=== PATIENT | female | born 1960 | race Caucasian/White ===

== ENCOUNTER 2016-08-15 15:07 | Emergency (ER) | payer OTHER ==
[~2016-08-15] VITALS: Ht 172.7 cm; Wt 106.5 kg
[~2016-08-15 15:07] MED LIST: ATEN-173 PO; ATV1 PO; TRIA3AER NAE
[2016-08-15 15:09] VITALS: TEMP 36.5; Ht 172.7 cm; Wt 106.5 kg
[2016-08-15] MEDS ORDERED: MoRPHine SULFATE 10 MG/ML CARP/VIAL IV STA (16:01)
[2016-08-15] MEDS ORDERED: ONDANSETRON INJ 2 MG/ML 2 ML VIAL IV STA (16:01)
[2016-08-15] MEDS ORDERED: SODIUM CHLORIDE 0.9% 1000ML 1,000 ML IV STA (16:01)
--- NOTE | 2016-08-15 16:09 | EMERGENCY ROOM VISIT NOTE ---
History First contact with patient: 15:49 Chief Complaint: ABDOMINAL PAIN Stated Complaint: SEVERE PAIN ON RIGHT SIDE History of Present Illness The patient is a 56 year old female who presents to the Emergency Room with complaints of right-sided abdominal pain which began approximately 4 hours ago. The patient reports that she had taken a few bites of her lunch of cheese when the pain began. She states the pain is severe and located in the right upper abdomen. She rates the discomfort an 8/10. She has not taken any medication for pain. She has had associated nausea and diarrhea. She denies any vomiting. She does report that she has had one episode of similar pain several months ago and had an ultrasound a few days later which showed gallstones. She denies any history of abdominal surgery. She denies any chest pain or shortness of breath. She denies any fevers/chills, urinary symptoms, vaginal discharge or vaginal bleeding. Review of Systems A complete 10-point Review of Systems was discussed with the patient, with pertinent positives and negatives listed in the History of Present Illness. All remaining Review of Systems questions can be considered negative unless otherwise specified. Social History Smoking Status: Never Smoker Current/Historical Medications Scheduled Ondasetron Odt (Zofran Odt), 4 MG SL Q6H Triamcinolone Acet (Nasacort-Aq Nasal Inh), 1 SPRAY LAVON DAILY Scheduled PRN Oxycodone/Acetaminophen 5MG/325MG (Percocet 5MG/325MG), 1-2 TABS PO Q6H PRN for Pain Allergies Coded Allergies: Aspirin (Unverified Allergy, Unknown, HIVES, 08/15/16) Gluten (Unverified Allergy, Unknown, GI ISSUES, 08/15/16) Physical Exam Vital Signs Date Time Temp Pulse Resp B/P Pulse Ox O2 Delivery O2 Flow Rate FiO2 08/15/16 18:52 79 18 161/95 95 Room Air 08/15/16 17:00 97 18 161/109 93 Room Air 08/15/16 15:09 36.5 81 18 159/109 98 Room Air Physical Exam VITALS: Vitals are noted on the nurse's note and reviewed by myself. Vital signs stable. GENERAL: This is a 56-year-old female, in no acute distress, nondiaphoretic, well-developed well-nourished. SKIN: Capillary reflex less than 2 seconds. HEART: Regular rate and rhythm without murmurs gallops or rubs. LUNGS: Clear to auscultation bilaterally without wheezes, rales or rhonchi. No retractions or accessory muscle use. ABDOMEN: Positive bowel sounds x 4. Moderate tenderness in the right upper quadrant. Negative Horner sign. No guarding or rebound tenderness. NEURO: Patient was alert and oriented to person place and time. Medical Decision & Procedures ER Provider Diagnostic Interpretation: CHEST ONE VIEW PORTABLE IMPRESSION: 1. Bibasilar atelectasis 2. No free air identified BILIARY ULTRASOUND FINDINGS: The pancreas appears normal as visualized. The liver appears sonographically normal. Multiple gallbladder calculi are visualized. There is borderline gallbladder wall thickening. There is no pericholecystic fluid. The technologist reports a negative sonographic Horner sign. The common bile duct is the upper limits of normal in size measuring 6 mm. There is moderate right-sided hydronephrosis. Given the right-sided pain, clinical correlation in regards to an obstructing ureteral calculus should be considered IMPRESSION: 1. Cholelithiasis and borderline gallbladder wall thickening 2. Negative sonographic Horner sign 3. 6 mm common bile duct 4. Unexplained right-sided hydronephrosis. Laboratory Results 08/15/16 16:40 Red Blood Count 4.95, Mean Corpuscular Volume 85.1, Mean Corpuscular Hemoglobin 29.3, Mean Corpuscular Hemoglobin Concent 34.4, Mean Platelet Volume 10.1, Neutrophils (%) (Auto) 81.8, Lymphocytes (%) (Auto) 11.7, Monocytes (%) (Auto) 4.8, Eosinophils (%) (Auto) 1.3, Basophils (%) (Auto) 0.3, Neutrophils # (Auto) 5.75, Lymphocytes # (Auto) 0.82, Monocytes # (Auto) 0.34, Eosinophils # (Auto) 0.09, Basophils # (Auto) 0.02 08/15/16 16:40 Test 08/15/16 16:30 08/15/16 16:40 Urine Color YELLOW Urine Appearance SL CLOUDY (CLEAR) Urine pH 8.5 (4.5-7.5) Urine Specific [place] 1.015 (1.000-1.030) Urine Protein NEG (NEG) Urine Glucose (UA) NEG (NEG) Urine Ketones NEG (NEG) Urine Occult Blood NEG (NEG) Urine Nitrite NEG (NEG) Urine Bilirubin NEG (NEG) Urine Urobilinogen NEG (NEG) Urine Leukocyte Esterase NEG (NEG) Urine RBC 0-4 /hpf (0-4) Urine WBC 1-5 /hpf (0-5) Urine Epithelial Cells >30 /lpf (0-5) Urine Bacteria NEG (NEG) Urine Test NEG (NEG) White Blood Count 7.03 K/uL (4.8-10.8) Red Blood Count 4.95 M/uL (4.2-5.4) Hemoglobin 14.5 g/dL (12.0-16.0) Hematocrit 42.1 % (37-47) Mean Corpuscular Volume 85.1 fL (80-100) Mean Corpuscular Hemoglobin 29.3 pg (25-34) Mean Corpuscular Hemoglobin Concent 34.4 g/dl (32-36) Platelet Count 204 K/uL (130-400) Mean Platelet Volume 10.1 fL (7.4-10.4) Neutrophils (%) (Auto) 81.8 % Lymphocytes (%) (Auto) 11.7 % Monocytes (%) (Auto) 4.8 % Eosinophils (%) (Auto) 1.3 % Basophils (%) (Auto) 0.3 % Neutrophils # (Auto) 5.75 K/uL (1.4-6.5) Lymphocytes # (Auto) 0.82 K/uL (1.2-3.4) Monocytes # (Auto) 0.34 K/uL (0.11-0.59) Eosinophils # (Auto) 0.09 K/uL (0-0.5) Basophils # (Auto) 0.02 K/uL (0-0.2) RDW Standard Deviation 39.7 fL (36.4-46.3) RDW Coefficient of Variation 13.0 % (11.5-14.5) Immature Granulocyte % (Auto) 0.1 % Immature Granulocyte # (Auto) 0.01 K/uL (0.00-0.02) Anion Gap 11.0 mmol/L (3-11) Est Creatinine Clear Calc Drug Dose 92.3 ml/min Estimated GFR () 85.7 Estimated GFR (Non- 74.0 BUN/Creatinine Ratio 16.5 (10-20) Calcium Level 9.0 mg/dl (8.5-10.1) Total Bilirubin 0.9 mg/dl (0.2-1) Aspartate Amino Transf (AST/SGOT) 155 U/L (15-37) Alanine Aminotransferase (ALT/SGPT) 141 U/L (12-78) Alkaline Phosphatase 97 U/L (45-117) Troponin I < 0.015 ng/ml (0-0.045) Total Protein 7.2 gm/dl (6.4-8.2) Albumin 3.6 gm/dl (3.4-5.0) Globulin 3.6 gm/dl (2.5-4.0) Albumin/Globulin Ratio 1.0 (0.9-2) Lipase 184 U/L (73-393) Medications Administered Medications (Trade) Dose Ordered Sig/Rufina Route Start Time Stop Time Status Last Admin Dose Admin Sodium Chloride (Nss 1000ml) 1,000 ml @ 999 mls/hr Q1H1M STAT IV 08/15/16 16:01 08/15/16 17:01 DC 08/15/16 16:01 999 MLS/HR Ondansetron HCl (Zofran Inj) 4 mg NOW STAT IV 08/15/16 16:01 08/15/16 16:04 DC 08/15/16 16:01 4 MG Morphine Sulfate (MoRPHine SULFATE INJ) 6 mg NOW STAT IV 08/15/16 16:01 08/15/16 16:04 DC 08/15/16 16:01 6 MG ECG Indication: abdominal pain Rate (beats per minute): 78 Rhythm: normal sinus Findings: no acute ischemic change, no ectopy Medical Decision Differential diagnosis includes biliary colic, renal calculus, pyelonephritis, gastroenteritis, colitis, retrocecal appendicitis, among others. The patient was evaluated as above. Labs were drawn and IV access was obtained. Imaging studies were performed and read by radiology as above. The patient was medicated with 1 L normal saline solution, 4 mg Zofran IV and 6 mg morphine IV. The patient was reassessed multiple times during their stay in the emergency department and remained in stable condition. The patient is a 56-year-old female who presents today complaining of right upper quadrant pain and nausea. Labs revealed no leukocytosis or anemia. AST and ALT were mildly elevated. Total bilirubin was within normal limits. Kidney functions are within normal limits. No concerning electrolyte abnormalities. Urinalysis was not suggestive of infection. Urine was negative. EKG was interpreted by myself and showed a normal sinus rhythm. Right upper quadrant ultrasound was performed and did show some gallbladder wall thickening as well as borderline dilatation of the common bile duct. There was no evidence of acute cholecystitis. However, given the patient's symptoms do feel this is likely secondary to biliary colic. I spoke with the general surgeon on-call, Dr. Ramos, who felt that the patient was stable for discharge home and follow-up in the office within the next few days. I discussed this with the patient, who was feeling complete resolution of her symptoms with the IV pain medication and nausea medication. She was given prescriptions for pain medication as well as Zofran and instructed to eat a low- fat diet at home. She was certainly invited to return to the emergency department if she has return of her pain or worsening pain. Otherwise, she will follow up with general surgery this week. Based on the patient's presentation, lab results, and imaging studies, I feel the patient is stable for outpatient treatment. The patient's case was reviewed with Dr. Silveira, ED attending physician, who agreed with my assessment and treatment plan. Discharge instructions were reviewed with the patient. The patient verbalized understanding of my assessment and treatment plan and was discharged home in good condition. Impression Primary Impression: Biliary colic Departure Information Dispostion Home / Self-Care Condition GOOD Prescriptions Oxycodone/Acetaminophen 5MG/325MG (PERCOCET 5MG/325MG) Tab 1-2 TABS PO Q6H Y for Pain, #20 TAB For Initial Treatment Prov: Kathy Rizo PA-C 08/15/16 Ondasetron Odt (ZOFRAN ODT) 4 Mg Tab 4 MG SL Q6H for Nausea, #15 TAB Prov: Kathy Rizo PA-C 08/15/16 Referrals Juan Butt M.D. (PCP) Jeison Ramos D.O. Patient Instructions [facility] Additional Instructions You have been treated in the Emergency Department for your Abdominal Pain. Laboratory results and imaging studies have ruled out any emergent causes for your abdominal pain which would warrant admission or surgery. You have been prescribed Percocet to be used for pain control. This is a narcotic medication. You cannot drive or consume alcohol while on this medicine. This medicine should only be used for pain that cannot be controlled with [id number] pain medicines. You have been prescribed and Zofran to be used for any nausea or vomiting. Take as prescribed. You should keep a diet low in fat for the next several days, as high fat foods may cause inflammation of the gall bladder. You should follow-up with Dr. Ramos within 3-4 days. Call his office tomorrow morning and let them know that here in the emergency department and Dr. Ramos would like you to be seen this week. As with any trip to the Emergency Department, you should follow-up with your Primary Care Provider from today's visit. Return to the emergency department if your symptoms persist despite treatment plan outlined above or if the following symptoms occur: Uncontrollable vomiting , blood in your vomiting, blood in your stools, fevers or any other new/ concerning symptoms.
[2016-08-15 16:46] LABS: URINE APPEARANCE SL CLOUDY (CLEAR); URINE BILIRUBIN NEG (NEG); URINE COLOR YELLOW; URINE NITRITE NEG (NEG); URINE PH 8.5 (4.5-7.5); URINE SPECIFIC GRAVITY 1.015 (1.000-1.030); UROBILINOGEN NEG (NEG)
[2016-08-15 16:48] LABS: MANUAL MICROSCOPIC REQUIRED? YES; REVIEW REQ? NO
[2016-08-15 16:53] LABS: BASO % 0.3 %; BASO ABS # 0.02 K/uL (0-0.2); COMPLETE YES; EOS % 1.3 %; HEMATOCRIT 42.1 % (37-47); IG% 0.1 %; LYMPH % 11.7 %; LYMPH ABS # 0.82 K/uL (1.2-3.4); MEAN CELL VOLUME 85.1 fL (80-100); MEAN CORPUSCULAR HEMOGLOBIN 29.3 pg (25-34); MEAN CORPUSCULAR HGB CONC 34.4 g/dl (32-36); MEAN PLATELET VOLUME 10.1 fL (7.4-10.4); MONO % 4.8 %; NEUT % 81.8 %; PLATELET COUNT 204 K/uL (130-400); RED BLOOD COUNT 4.95 M/uL (4.2-5.4); WHITE BLOOD COUNT 7.03 K/uL (4.8-10.8)
--- NOTE | 2016-08-15 16:53 | DIAGNOSTIC IMAGING REPORT ---
CHEST ONE VIEW PORTABLE CLINICAL HISTORY: Right upper quadrant abdominal pain COMPARISON STUDY: No previous studies for comparison. FINDINGS: The heart is normal in size. There is no failure. There is no lobar consolidation. There are linear bibasilar opacities, likely atelectatic. No free air is visualized.[ IMPRESSION: 1. Bibasilar atelectasis 2. No free air identified Electronically signed by: Pilo Marmolejo M.D. 08/15/2016 4:52 PM Dictated Date/Time: 08/15/2016 4:51 PM
[2016-08-15 16:57] LABS: URINE BACTERIA NEG (NEG); URINE RBC 0-4 /hpf (0-4)
[2016-08-15 16:58] LABS: ZZUR CULT IF INDIC CLEAN CATCH NO
[2016-08-15 17:14] LABS: ALT/SGPT 141 U/L (12-78); AST/SGOT 155 U/L (15-37); BLOOD UREA NITROGEN 15 mg/dl (7-18); BUN/CREATININE RATIO 16.5 (10-20); CARBON DIOXIDE 22 mmol/L (21-32); CHLORIDE 108 mmol/L (98-107); CREATININE 0.88 mg/dl (0.60-1.20); GLUCOSE 113 mg/dl (70-99); POTASSIUM 3.6 mmol/L (3.5-5.1); SODIUM 141 mmol/L (136-145)
[2016-08-15 17:19] LABS: ALKALINE PHOSPHATASE 97 U/L (45-117)
--- NOTE | 2016-08-15 18:01 | DIAGNOSTIC IMAGING REPORT ---
BILIARY ULTRASOUND CLINICAL HISTORY: Right upper quadrant abdominal pain and nausea COMPARISON STUDY: No previous studies for comparison. FINDINGS: The pancreas appears normal as visualized. The liver appears sonographically normal. Multiple gallbladder calculi are visualized. There is borderline gallbladder wall thickening. There is no pericholecystic fluid. The technologist reports a negative sonographic Horner sign. The common bile duct is the upper limits of normal in size measuring 6 mm. There is moderate right-sided hydronephrosis. Given the right-sided pain, clinical correlation in regards to an obstructing ureteral calculus should be considered IMPRESSION: 1. Cholelithiasis and borderline gallbladder wall thickening 2. Negative sonographic Horner sign 3. 6 mm common bile duct 4. Unexplained right-sided hydronephrosis. Electronically signed by: Pilo Marmolejo M.D. 08/15/2016 6:00 PM Dictated Date/Time: 08/15/2016 5:58 PM
[2016-08-15] MEDS ORDERED: OXYC-57 PO (18:33)
[2016-08-15] MEDS ORDERED: ONDA4TAB10 SL (18:33)
[2016-08-15 18:52] VITALS: BP 161/95; PULSE 79; O2SAT 95
[2016-08-23] MEDS ORDERED: HYDR-5688 PO (12:37)
== END 2016-08-15 18:56 | disposition home or self-care (01) ==
LOC: C.EDB 15:08
DX: K80.50 Calculus of bile duct without cholangitis or cholecystitis without obstruction (principal); Z88.6 Allergy status to analgesic agent

== ENCOUNTER → 2016-08-23 | Day surgery (SDC) | payer OTHER ==
[~2016-08-23] VITALS: Ht 172.7 cm; Wt 90.9 kg
[~2016-08-23] MED LIST changes: -ATEN-173 PO; +ATROPINE SULFATE 0.1 MG/ML 5ML SYR IV PRN; -ATV1 PO; +BUPIVACAINE/EPINEPHRINE 0.5% MPF 1:200,000 30 ML VIAL ONE; +CEFAZOLIN 2000 MG/60 ML D5W 60 ML IV SCH; +DEXAMETHASONE SOD INJ 4 MG/ML VIAL ONE; +FENTANYL CITRATE INJ 50 MCG/1 ML 2 ML VIAL ONE; +GLYCOPYRROLATE INJ 0.2 MG/ML VIAL ONE; +HEPARIN SOD 5000 UNIT/0.5 ML CARP SQ SCH; +HYDR-5688 PO; +HYDROCODONE/ACETAMOPHEN 5/325MG TAB PO PRN; +HYDROmorphone INJ 0.5 MG/0.5 ML SYR IV PRN; +HYDROmorphone INJ 1 MG/ML SYR ONE; +KETOROLAC TROMETHAMINE 30 MG/ML VIAL IV. PRN; +KETOROLAC TROMETHAMINE 30 MG/ML VIAL ONE; +LACTATED RINGER'S 1000ML 1,000 ML IV SCH; +LACTATED RINGER'S 1000ML IV SCH; +LIDOCAINE HCL 2% 2 ML VIAL (20MG/ML) ONE; +MIDAZOLAM HCL 1 MG/ML 2ML VIAL ONE; +MoRPHine SULFATE 4 MG/ML 1 ML CARP\\VIAL IV PRN; +NEOSTIGMINE METHYLSULFATE 5 MG/5 ML SYR ONE; +ONDANSETRON INJ 2 MG/ML 2 ML VIAL IV PRN; +ONDANSETRON INJ 2 MG/ML 2 ML VIAL ONE; +PROPOFOL IV EMULSION 10 MG/ML 20 ML VIAL IV ONE; +ROCURONIUM BROMIDE 10 MG/ML 5 ML VIAL ONE
[2016-08-23 11:41] VITALS: BP 133/77; PULSE 75; TEMP 36.9; O2SAT 97; Ht 172.7 cm; Wt 90.9 kg
--- NOTE | 2016-08-23 12:37 | History & Physical Bridge Note ---
H&P Re-Evaluation Bridge Note: I have examined the patient, reviewed the History & Physical and in the interval since the performance of the History & Physical I have noted the following changes of clinical significance: No changes noted
--- NOTE | 2016-08-23 12:39 | Discharge Instructions ---
Discharge Instructions Admission Reason for Admission: Symptomatic Cholelithiasis Discharge Discharge Diagnosis / Problem: symptomatic cholelithiasis Discharge Goals Goal(s): Decrease discomfort Activity Recommendations Activity Limitations: as noted below Lifting Limitations: no more than 10 pounds Exercise/Sports Limitations: until after follow-up appointment May Resume Sexual Activity: after follow-up appointment Shower/Bathe: tomorrow . Instructions / Follow-Up Instructions / Follow-Up follow up with Dr. Ramos in 1-2 weeks. Current Hospital Diet Patient's current hospital diet: Discharge Diet Recommended Diet: Regular Diet Procedures Procedures Performed: lap homer Pending Studies Studies pending at discharge: yes List of pending studies: pathology report Medical Emergencies . Who to Call and When: Medical Emergencies: If at any time you feel your situation is an emergency, please call 911 immediately. . Non-Emergent Contact Non-Emergency issues call your: Primary Care Provider, Surgeon Call Non-Emergent contact if: temperature is above 101, wound has increased drainage, wound has increased redness, wound has increased pain . "Provider Documentation" section prepared by Jeison Ramos. VTE Core Measure Inpt VTE Proph given/why not?: Unfractionated heparin SQ, SCD's
--- NOTE | 2016-08-23 14:56 | [facility] Operative Report ---
Operative Report Operative Date Aug 23, 2016. Pre-Operative Diagnosis symptomatic cholelithiasis Post-Operative Diagnosis symptomatic cholelithiasis Procedure(s) Performed lap homer Food Beverage Attendant Surgeon(s) Abhay Culver PA-c Findings normal anatomy other than gallstones Anesthesia GET Complication(s) None Disposition Recovery Room / PACU I attest to the content of the Intraoperative Record and any orders documented therein. Any exceptions are noted below.
--- NOTE | 2016-08-23 15:19 | Anesthesiology Progress Note ---
Anesthesia Post Op Note Date & Time Aug 23, 2016 at 15:19 Vital Signs Vital Signs Past 12 Hours Date Time Temp Pulse Resp B/P Pulse Ox O2 Delivery O2 Flow Rate FiO2 08/23/16 15:10 57 13 129/79 92 Nasal Cannula 2 08/23/16 15:00 55 13 143/93 93 Room Air 08/23/16 14:50 63 15 153/79 100 Mask 10 08/23/16 14:40 64 15 146/96 100 Mask 10 08/23/16 14:30 36.2 86 16 133/89 100 Mask 10 08/23/16 11:41 36.9 75 18 133/77 97 Room Air Notes Mental Status: alert / awake / arousable, participated in evaluation Pt Amnestic to Procedure: Yes Nausea / Vomiting: adequately controlled Pain: adequately controlled Airway Patency, RR, SpO2: stable & adequate BP & HR: stable & adequate Hydration State: stable & adequate Anesthetic Complications: no major complications apparent
[2016-08-23 15:35] VITALS: BP 133/66; PULSE 59; TEMP 36.6; O2SAT 93
[2016-08-23 16:05] VITALS: BP 124/74; PULSE 62; O2SAT 93
--- NOTE | 2016-08-23 16:15 | OPERATIVE REPORT ---
DATE OF OPERATION: 08/23/2016 PREOPERATIVE DIAGNOSIS: Symptomatic cholelithiasis. POSTOPERATIVE DIAGNOSIS: Same. PROCEDURE: Laparoscopic cholecystectomy. SURGEON: Dr. Ramos. OUTPATIENT PHYSICAL THERAPIST ASSISTANT: Abhay Culver PA-C. ESTIMATED BLOOD LOSS: Approximately 10 mL. COMPLICATIONS: No immediate. ANESTHESIA: General. The patient tolerated the procedure well. OPERATION AND FINDINGS: OPERATIVE NOTE: After informed consent was obtained, the patient was taken to the operating suite, placed in supine position. After successful intubation, the abdomen was sterilely prepped and draped in usual fashion. A periumbilical incision made with an 11 blade scalpel and carried down through the soft tissue using electrocautery. The anterior rectus fascia was opened using electrocautery and two #0 Vicryl stay sutures were placed. Peritoneum was entered using blunt finger penetration and a finger sweep was performed to take down any underlying adhesions. A 12 mm Moira trocar was placed and the abdomen was insufflated to 18 mmHg. Laparoscope was inserted and the abdomen examined 360 degrees. Other than a few adhesions in the lower abdomen, no other abnormalities were identified. A subxiphoid 5 mm port and 2 right upper quadrant 5 mm ports were placed under direct vision. The patient was placed in reverse Trendelenburg position and slightly airplaned to the left. The gallbladder was grasped and elevated. There were some adhesions in the neck of it. We used a [place] dissector to pull these down bluntly. I was then able use a [place] dissector to skeletonize the cystic duct. Two clips were placed proximally and 1 distally and it was transected. In similar fashion, the cystic artery was identified, skeletonized, clipped and divided as well. The gallbladder was removed from the gallbladder fossa using electrocautery. It was removed intact and placed into an EndoCatch bag. Small bleeding point on the gallbladder fossa was controlled using electrocautery. At the end of the procedure, there was adequate hemostasis and no evidence of a bile leak. We did take another look around and saw no other gross abnormalities. The trocars as well as the bag containing the gallbladder were all removed and the abdomen was desufflated. The fascia of the camera port was closed using 0 Vicryl in a [id number]-[id number] fashion. All wounds were irrigated, and closed using 4-0 Monocryl. Marcaine was injected around them for postoperative analgesia and skin glue used as a dressing. The patient was awakened, extubated, and transferred to recovery in stable condition. I attest to the content of the Intraoperative Record and any orders documented therein. Any exceptio ns are noted below.
[2016-08-23 16:38] VITALS: BP 120/72; PULSE 63; O2SAT 93
== END | disposition home or self-care (01) ==
LOC: C.ACU 11:01
PROVIDERS: ATTEND Surgery
DX: K80.10 Calculus of gallbladder with chronic cholecystitis without obstruction (principal); Z82.49 Family history of ischemic heart disease and other diseases of the circulatory system

== ENCOUNTER → 2016-11-24 | Outpatient (CLI) | payer OTHER ==
[~2016-11-24] MED LIST changes: -ATROPINE SULFATE 0.1 MG/ML 5ML SYR IV PRN; -BUPIVACAINE/EPINEPHRINE 0.5% MPF 1:200,000 30 ML VIAL ONE; -CEFAZOLIN 2000 MG/60 ML D5W 60 ML IV SCH; -DEXAMETHASONE SOD INJ 4 MG/ML VIAL ONE; -FENTANYL CITRATE INJ 50 MCG/1 ML 2 ML VIAL ONE; -GLYCOPYRROLATE INJ 0.2 MG/ML VIAL ONE; -HEPARIN SOD 5000 UNIT/0.5 ML CARP SQ SCH; -HYDROCODONE/ACETAMOPHEN 5/325MG TAB PO PRN; -HYDROmorphone INJ 0.5 MG/0.5 ML SYR IV PRN; -HYDROmorphone INJ 1 MG/ML SYR ONE; -KETOROLAC TROMETHAMINE 30 MG/ML VIAL IV. PRN; -KETOROLAC TROMETHAMINE 30 MG/ML VIAL ONE; -LACTATED RINGER'S 1000ML 1,000 ML IV SCH; -LACTATED RINGER'S 1000ML IV SCH; -LIDOCAINE HCL 2% 2 ML VIAL (20MG/ML) ONE; -MIDAZOLAM HCL 1 MG/ML 2ML VIAL ONE; -MoRPHine SULFATE 4 MG/ML 1 ML CARP\\VIAL IV PRN; -NEOSTIGMINE METHYLSULFATE 5 MG/5 ML SYR ONE; -ONDANSETRON INJ 2 MG/ML 2 ML VIAL IV PRN; -ONDANSETRON INJ 2 MG/ML 2 ML VIAL ONE; -PROPOFOL IV EMULSION 10 MG/ML 20 ML VIAL IV ONE; -ROCURONIUM BROMIDE 10 MG/ML 5 ML VIAL ONE
--- NOTE | 2016-11-24 13:08 | MAMMOGRAPHY REPORT ---
BILATERAL DIGITAL SCREENING MAMMOGRAM TOMOSYNTHESIS WITH CAD: 11/24/2016 CLINICAL HISTORY: Routine screening. Patient has no complaints. TECHNIQUE: Breast tomosynthesis in addition to standard 2D mammography was performed. Current study was also evaluated with a Computer Aided Detection (CAD) system. COMPARISON: Comparison is made to exams dated: 11/20/2015 mammogram, 09/08/2014 mammogram, 07/25/2013 m ammogram, 06/22/2012 mammogram, 05/23/2011 mammogram, and 05/19/2009 mammogram - [facility]. BREAST COMPOSITION: There are scattered areas of fibroglandular density in both breasts. FINDINGS: No suspicious masses, calcifications, or areas of architectural distortion are noted in e ither breast. There has been no significant interval change compared to prior exams. Bilateral asym metries are stable, including an ovoid asymmetry in the left superior posterior breast on the MLO vi ew which is similar to prior exams including the 2014 exam. IMPRESSION: ACR BI-RADS CATEGORY 2: BENIGN There is no mammographic evidence of malignancy. A 1 year screening mammogram is recommended. The p atient will receive written notification of the results. Approximately 10% of breast cancers are not detected with mammography. A negative mammographic repor t should not delay biopsy if a clinically suggestive mass is present. Theodora Vaughan M.D. /:11/24/2016 08:35:04 Dispatcher Service Chief: Caty SCHNEIDER)(M), [facility] letter sent: Normal 1/2 BI-RADS Code: ACR BI-RADS Category 2: Benign
== END | disposition home or self-care (01) ==
LOC: C.MAMM 07:55
PROVIDERS: ATTEND Obstetrics & Gynecology
DX: Z12.31 Encounter for screening mammogram for malignant neoplasm of breast (principal)

== ENCOUNTER → 2017-01-12 | Outpatient (CLI) | payer OTHER | END | disposition home or self-care (01) | LOC: C.PAPS 16:28 | PROVIDERS: ATTEND Obstetrics & Gynecology | DX: Z01.419 Encounter for gynecological examination (general) (routine) without abnormal findings (principal) ==

== ENCOUNTER → 2017-11-29 | Outpatient (CLI) | payer OTHER ==
[~2017-11-29] MED LIST changes: -HYDR-5688 PO
--- NOTE | 2017-11-29 14:23 | MAMMOGRAPHY REPORT ---
BILATERAL DIGITAL SCREENING MAMMOGRAM TOMOSYNTHESIS WITH CAD: 11/29/2017 CLINICAL HISTORY: Routine screening. Patient has no complaints. TECHNIQUE: Breast tomosynthesis in addition to standard 2D mammography was performed. Current study was also evaluated with a Computer Aided Detection (CAD) system. COMPARISON: Comparison is made to exams dated: 11/24/2016 mammogram, 11/20/2015 mammogram, 09/08/2014 ma mmogram, 07/25/2013 mammogram, 06/22/2012 mammogram, and 05/23/2011 mammogram - [facility]. BREAST COMPOSITION: There are scattered areas of fibroglandular density in both breasts. FINDINGS: No suspicious masses, calcifications, or areas of architectural distortion are noted in ei ther breast. There has been no significant interval change compared to prior exams. Bilateral asymme tries are stable, including an asymmetry within the left upper inner quadrant which is stable compare d to multiple prior exams including the 2011 exam. IMPRESSION: ACR BI-RADS CATEGORY 2: BENIGN There is no mammographic evidence of malignancy. A 1 year screening mammogram is recommended. The pa tient will receive written notification of the results. Approximately 10% of breast cancers are not detected with mammography. A negative mammographic report should not delay biopsy if a clinically suggestive mass is present. Theodora Vaughan M.D. ah/:11/29/2017 09:58:51 Patient Care Technician: Pushpa Wright RT(R)(M), [facility] letter sent: Normal 1/2 BI-RADS Code: ACR BI-RADS Category 2: Benign
== END | disposition home or self-care (01) ==
LOC: C.MAMM 07:50
PROVIDERS: ATTEND Obstetrics & Gynecology
DX: Z12.31 Encounter for screening mammogram for malignant neoplasm of breast (principal)